=== PATIENT | female | born 1945 | race Caucasian/White ===

== ENCOUNTER 2017-03-15 07:59 | Day surgery (SDC) | payer OTHER ==
[~2017-03-15] VITALS: Ht 149.9 cm; Wt 114.0 kg
[~2017-03-15 07:59] MED LIST: ASPIR 8181 M1 PO; ELAVIL25 MG PO; LIPITOR20 MG PO; MICRO-K8 ME2 PO; PERCOCET 5/31 TABLET PO; SYNTHROID100 MCG PO; TRIAMTERENE-HC1 EACH PO; TYLENOL EXTRA500 MG PO
[2017-03-15 09:03] VITALS: BP 186/86
[2017-03-15 21:10] VITALS: BP 175/78
[2017-03-15 23:32] VITALS: BP 152/72
[2017-03-16 03:45] VITALS: BP 150/65
[2017-03-16 08:35] VITALS: BP 128/68
== END 2017-03-16 09:35 | disposition home or self-care (01) ==
LOC: SDC 07:59 → 2EAST 20:43
PROC: 01NB0ZZ Release Lumbar Nerve, Open Approach (ICD-10-PCS; principal; 2017-03-15)
DX: M48.06 Spinal stenosis, lumbar region (principal); M47.26 Other spondylosis with radiculopathy, lumbar region; M54.5 Low back pain; G89.29 Other chronic pain; M46.96 Unspecified inflammatory spondylopathy, lumbar region; I10 Essential (primary) hypertension; E03.9 Hypothyroidism, unspecified; G96.8 Other specified disorders of central nervous system; F09 Unspecified mental disorder due to known physiological condition; I73.9 Peripheral vascular disease, unspecified; E66.01 Morbid (severe) obesity due to excess calories; Z68.43 Body mass index [BMI] 50.0-59.9, adult; Z79.891 Long term (current) use of opiate analgesic; Z96.653 Presence of artificial knee joint, bilateral; Z82.49 Family history of ischemic heart disease and other diseases of the circulatory system; Z87.891 Personal history of nicotine dependence
CPT/HCPCS: 72020; 76000; 94002; G0378; J0131; J0330; J0690; J1100; J1170; J2250; J2405; J2710; J2930; J3370; J3480; S0020